=== PATIENT | male | born 2000 | race African-American/Black ===

== ENCOUNTER 2022-05-26 07:07 | Day surgery (SDC) | payer OTHER ==
[2022-05-23 18:02] VITALS: BMI 24.3
[2022-05-26] MEDS ORDERED: DEXAMETHASONE SOD PHOSPHATE 10 MG/1 ML VIAL ONE (09:25)
[2022-05-26] MEDS ORDERED: MIDAZOLAM HCL 2 MG/2 ML SINGLE DOSE VIAL ONE (09:25)
[2022-05-26] MEDS ORDERED: ROPIVACAINE HCL/PF 100 MG/20 ML VIAL ONE (09:26)
[2022-05-26] MEDS ORDERED: PROPOFOL 20 ML ONE (09:40)
[2022-05-26] MEDS ORDERED: SUCCINYLCHOLINE CHLORIDE 200 MG/10 ML SYRINGE ONE (10:22)
[2022-05-26] MEDS ORDERED: LIDOCAINE HCL 2% JELLY 10 ML CARTRIDGE ONE (10:27)
[2022-05-26] MEDS ORDERED: ONDANSETRON 4 MG/2 ML VIAL ONE ×2 (10:27→12:53)
[2022-05-26] MEDS ORDERED: KETOROLAC TROMETHAMINE 30 MG/1 ML VIAL ONE (10:27)
[2022-05-26] MEDS ORDERED: DEXAMETHASONE SOD PHOSPHATE 4 MG/1 ML VIAL ONE (10:27)
[2022-05-26] MEDS ORDERED: ceFAZolin SODIUM 1 GM VIAL ONE (10:27)
[2022-05-26] MEDS ORDERED: EPINEPHrine 1:1,000 1,000 MCG/ML ML ONE (10:30)
[2022-05-26] MEDS ORDERED: oxyCODONE HCL 5 MG TABLET PO PRN ×2 (11:40)
[2022-05-26] MEDS ORDERED: PROMETHAZINE HCL 25 MG/1 ML VIAL IVPUSH PRN (11:40)
[2022-05-26] MEDS ORDERED: ONDANSETRON 4 MG/2 ML VIAL IVPUSH PRN (11:40)
[2022-05-26] MEDS ORDERED: FENTANYL CITRATE/PF 50 MCG/ML VIAL ONE (12:11)
[2022-05-26 12:59] VITALS: TEMP 97.4
[2022-05-26 13:39] VITALS: BP 110/68; PULSE 62; RESP 16
== END 2022-05-26 13:35 | disposition home or self-care (01) ==
LOC: FASU 07:07
PROVIDERS: ATTEND Orthopaedic Surgery
PROC: 0RQJ4ZZ Repair Right Shoulder Joint, Percutaneous Endoscopic Approach (ICD-10-PCS; principal; 2022-05-26 10:27)
DX: S43.431A Superior glenoid labrum lesion of right shoulder, initial encounter (principal); X58.XXXA Exposure to other specified factors, initial encounter; Y93.9 Activity, unspecified; Y92.9 Unspecified place or not applicable
CPT/HCPCS: 94760; J1100